=== PATIENT | male | born 1950 | race Caucasian/White ===

== ENCOUNTER 2022-10-06 08:38 | Outpatient (CLI) | payer MEDICARE, SELFPAY | END 2022-10-06 08:39 | disposition home or self-care (01) | LOC: AMB 10-09 11:19 | PROVIDERS: Visit Provider Family Medicine | DX: R06.09 Other forms of dyspnea (principal); A41.9 Sepsis, unspecified organism | CPT/HCPCS: A0425; A0434 ==